=== PATIENT | female | born 1945 | race African-American/Black ===

== ENCOUNTER 2018-09-13 09:55 | Emergency (ER) | payer BC, MEDICARE ==
[~2018-09-13] VITALS: Ht 162.6 cm; Wt 68.0 kg
[~2018-09-13 09:55] MED LIST: DYZ PO; ESTR1.5T5 PO; FLUT1DIS3 IH; FOLI-43 PO; GUAN2TAB PO; PARO-41 PO; SYN200 PO; VERA240C2 PO; [UNRECOGNIZED DRUG - OTHER]
[2018-09-13 11:03] LABS: BASOPHILS % 0.6 % (0.0-2.0); EOSINOPHILS % 0.3 % (0.0-5.0); HEMATOCRIT. 39.1 % (36.0-48.0); HEMOGLOBIN. 13.6 g/dL (12.0-16.0); LYMPHOCYTES % 12.1 % (20.0-50.0); MEAN CORPUSCULAR HEMOGLOBIN 36.5 pg (28.0-32.0); MEAN CORPUSCULAR VOLUME 105.2 fL (81.0-99.0); MEAN PLATELET VOLUME 10.1 fl (7.4-10.4); MONOCYTES % 6.7 % (2.0-8.0); NEUTROPHILS % 80.3 % (40.0-76.0); PLATELET 165 x1000/uL (130-400); RED BLOOD CELL COUNT 3.72 mill/uL (4.2-5.4); RED CELL DISTRIBUTION WIDTH 14.1 % (11.6-14.6)
[2018-09-13 11:06] LABS: INR 1.2
[2018-09-13 11:53] LABS: CHLORIDE 99 mEq/L (98-107)
[2018-09-13 13:31] LABS: CLARITY URINE CLEAR (CLEAR); COLOR URINE DARK YELLOW (YELLOW); KETONES URINE TRACE (NEGATIVE); LEUKOCYTE ESTERASE URINE TRACE (NEGATIVE); NITRITE URINE NEGATIVE (NEGATIVE); OCCULT BLOOD URINE NEGATIVE (NEGATIVE); PH URINE >=9.0 (4.5-8.0); PROTEIN URINE TRACE (NEGATIVE); SPECIFIC GRAVITY URINE 1.019 (1.005-1.030)
[2018-09-13 15:10] VITALS: BP 122/80
== END 2018-09-13 15:47 | disposition home or self-care (01) ==
LOC: ER 11:00
DX: R10.9 Unspecified abdominal pain (principal); M25.532 Pain in left wrist; I10 Essential (primary) hypertension; Z79.899 Other long term (current) drug therapy
CPT/HCPCS: 36415; 71045; 73110; 80053; 81003; 85025; 85610; 93005; 99285